=== PATIENT | female | born 1945 | race Caucasian/White ===

== ENCOUNTER 2023-10-08 09:58 | Emergency (ER) | payer MEDICARE, OTHER ==
[2023-10-08 10:17] VITALS: BP 120/53; O2SAT 100
--- NOTE | 2023-10-08 10:55 | ED Physician Documentation ---
PD HPI LOWER EXT INJURY - Stated complaint Stated Complaint: R LEG INJURY - Chief complaint Chief Complaint: Trauma Ext - History obtained from History obtained from: Patient - History of Present Illness PD HPI LOW EXT INJURY LOCATION: Right, Knee Type of injury: Twist, Blunt / blow Where injury occurred: Other Improved by: Rest, Ice Worsened by: Moving, Palpating - Additional information Additional information: 78-year-old female presents with right knee pain after getting [place]. She tried to brace Herself to avoid falling and hyperextended The right knee. Since then she has had some pain in the medial aspect of the right knee. Mild swelling. She is able to bear weight, and is able to flex and extend. She wanted to be sure that there was no serious injury before she flew back to [place] where she lives in a few days. 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: Fibroids : Kidney stones HEENT: None Psych: None Musculoskeletal: Osteoarthritis Derm: None - Past Surgical History Past Surgical History: Yes General: Cholecystectomy Ortho: Spine surgery, Other /SHELL COREMAKER: Hysterectomy - Present Medications Home Medications: Ambulatory Orders Medication Instructions Recorded Confirmed Cholecalciferol [Vitamin D3] 5,000 unit ORAL DAILY 10/08/23 10/08/23 - Allergies Allergies/Adverse Reactions: Allergies Allergy/AdvReac Type Severity Reaction Status Date / Time Sulfa (Sulfonamide Allergy Hives Verified 10/08/23 10:09 Antibiotics) - Social History Does the pt smoke?: No Smoking Status: Never smoker Does the pt drink ETOH?: No Does the pt have substance abuse?: No - Immunizations Immunizations are current?: Yes - POLST Patient has POLST: No PD ED PE NORMAL - Vitals Vital signs reviewed: Yes - General General: Alert and oriented X 3, No acute distress, Well developed/nourished - HEENT HEENT: Atraumatic, Moist mucous membranes - Derm Derm: Normal color, Warm and dry - Extremities Extremities: No deformity, Other (Mild right knee swelling, tenderness medial joint line, no obvious deformity. No erythema. Normal flexion extension, negative Missael's and Yair's testing. No laxity.) Results - Vitals Vitals: Vital Signs - 24 hr 10/08/23 10:09 Temperature 36.1 C L Heart Rate 83 Respiratory 16 Rate Blood Pressure 120/53 L O2 Saturation 100 Oxygen O2 Source Room air - Rads (name of study) No standard instances Relevant Findings:: Final report received PD Medical Decision Making - ED course Complexity details: reviewed results, re-evaluated patient, considered differential, d/w patient ED course: 78-year-old female presented with right knee pain after getting jumped onset by some dogs yesterday as described in HPI. She has mild swelling of the right knee, no obvious deformity, no obvious laxity no signs of infection. I suspect a sprain though advised I cannot rule out complete ligamentous tear or meniscal injury. Recommended supportive measures including cool compress, ibuprofen Tylenol, compression, range of motion activities, and to follow-up with her primary doctor when she returns to [place] if there is no improvement in the next 1 to 2 weeks. Return precautions reviewed. Departure - Departure Disposition: 01 Home, Self Care Clinical Impression: Right knee sprain Qualifiers: Encounter type: initial encounter Involved ligament of knee: unspecified ligament Qualified Code(s): S83.91XA - Sprain of unspecified site of right knee, initial encounter Condition: Good Instructions: ED Sprain Knee Comments: Your x-ray today showed some swelling but no injury to the bone. I think you likely have a sprain of the needle potentially have a partial tear of the meniscus. Typically these things improve with supportive measures including ice, light range of motion, ibuprofen and Tylenol. You can use a knee brace or wrap for stability. If no improvement in the next couple weeks, follow-up with your primary doctor when you return to [place] and they may order physical therapy or possibly an MRI. Forms: PCP List
--- NOTE | 2023-10-08 10:56 | XRAY Report ---
PROCEDURE: Knee 4+V RT INDICATIONS: Trauma TECHNIQUE: 4 views of the knee(s) were acquired. COMPARISON: None. FINDINGS: Bones: Moderate degenerative changes with joint space narrowing especially in the medial compartment. No acute displaced fracture. Soft tissues: Suspected small knee effusion. Patellar enthesopathy. IMPRESSION: Suspect knee effusion. No displaced fracture. If there is high concern for further derangement, consider MRI evaluation. Moderate background degenerative changes Reviewed by: Onur Castellanos MD on 10/08/2023 10:55 AM PDT Approved by: Onur Castellanos MD on 10/08/2023 10:55 AM PDT Station ID: [id number]
== END 2023-10-08 11:31 | disposition home or self-care (01) ==
LOC: ED 09:58
DX: S83.91XA Sprain of unspecified site of right knee, initial encounter (principal); W54.1XXA Struck by dog, initial encounter; Y92.832 Beach as the place of occurrence of the external cause
CPT/HCPCS: 99283